=== PATIENT | male | born 1965 | race Caucasian/White ===

== ENCOUNTER 2023-02-21 12:41 | Outpatient (REF) | payer OTHER, SELFPAY ==
--- NOTE | ~2023-02-21 | XR_ITS ---
EXAMINATION: XR LUMBOSACRAL SPINE WITH OBLIQUES CLINICAL INFORMATION: Spinal stenosis. COMPARISON: None available. TECHNIQUE: AP, lateral, flexion and extension views of the lumbar spine. FINDINGS: Levoscoliosis of the thoracolumbar spine. Facet arthritis in the lower lumbar spine. Atherosclerotic aortoiliac calcifications. Mild multilevel lumbar spondylosis. Mild loss of disc space height at L4-L5 with very minimal anterolisthesis of L4 on L5. XR/XR lumbar spine 4V min IMPRESSION: Mild multilevel degenerative changes most notable at L4-L5. Advanced facet arthritis in the cth-av-eiysz lumbar spine.
== END 2023-02-21 12:42 | disposition home or self-care (01) ==
LOC: HO.HOSX 12:41
PROVIDERS: Visit Provider Physician Assistant
DX: M48.061 Spinal stenosis, lumbar region without neurogenic claudication (principal)
CPT/HCPCS: 72110

== ENCOUNTER 2023-02-21 12:41 | Outpatient (AMB) | payer OTHER, SELFPAY ==
--- NOTE | 2023-02-21 13:03 | HO.SPINEOV ---
Intake Intake Visit Reasons: herniated disc Intake Note: Mr Villarreal is here today c/o low back pain. MRI/brought disc. Assessment & Plan Assessment & Plan (1) Lumbar stenosis: Code(s): M48.061 - Spinal stenosis, lumbar region without neurogenic claudication Plan This is a very nice 57-year-old gentleman who is self-referred for evaluation of a right lumbar radiculopathy which goes from his buttock down into his posterior thigh. It started about a year ago and was very intense at the time. He initially saw an orthopedic surgeon and it was felt that it possibly was his hip. They tried doing a number of different treatments. He ultimately underwent physical therapy. He was trialed on prednisone, Advil and muscle relaxers. As the months went on the pain down a little bit but he continued to have flare ups. Ultimately he was diagnosed by a neurosurgeon in [place] with lumbar radiculopathy after an MRI showed severe stenosis at L4-5 and he underwent 2 cortisone injections in his back. He did get 2 solid days of relief from that but ultimately everything came back. He was started on gabapentin which is dampen down the pain quite a bit, but if he is off it for any length of time the severity of the right leg pain will increase again and his right back where he started. He tried chiropractic treatments as well. At this point the neuro surgeon in [place] was offering him lumbar fusion surgery. He was looking for something more minimally invasive so he sought out Dr. Mac who had operated on a friend of his. He does not report any significant back pain. His symptoms are not necessarily aggravated with activity but can start randomly. PMH: He has history of hypertension, when he was in his 30s his blood pressure so high he has TIAs related to the elevated blood pressure. Since his blood pressures come down he has had none of those issues. Outside of that he is very healthy. Social hx: He does not smoke Medications: Gabapentin, Advil and a muscle relaxer Allergies: None Physical exam: He is awake alert oriented no acute distress here with his , he has full strength bilateral lower extremities, gait is normal Imaging review: Lumbar MRI done in July 2022 at a hospital in [place] and this shows overall relatively good disc health, he may have a slight spondylolisthesis at L4-5. He has congenitally short pedicles and severe stenosis at L4-5. The rest of his lumbar spine is unremarkable. Impression: 57-year-old gentleman self-referred today for an intermittent right lumbar radiculopathy which starts in his buttock and radiates down into his posterior lateral thigh. He has severe stenosis at L4-5 in the setting of congenitally short pedicles. He has tried all the usual conservative treatments. He did get a great response from a cortisone injection for about 2 days but it was short-lived. The symptoms at this point are significantly affecting his quality of life. His neuro exam is intact. He was told by another neurosurgeon that he would benefit from an L4-5 fusion. I sent him for flexion-extension x-rays today and I do not see any evidence of instability so I do not think a fusion would be necessary.. I think he would be a good candidate for a right L4-5 decompression. I will speak to Dr. Mac and have him review the films to see if he agrees. Pt was given risk and benefits of surgery including but not limited to infection, hematoma , nerve injury,durotomy, weakness,bowel/bladder injury, persistent pain, as well as the option to continue with conservative treatment and patient wishes to proceed with surgery. Pt is aware they should stop their motrin, aspirin 7 days prior to surgery. All questions were answered to the best of our ability. If there is anything about this patients medical history that we have overlooked or concerns you have about us proceeding with surgery we would appreciate any input you can offer. I have tentatively put him on the books for surgery for April 22. He lives 2 hours away in [place] so we can get his PCP to do an EKG and blood work and he can have his preoperative testing over the phone hopefully. Thank you for allowing us to care for your patient. The total time spent with this visit with this patient was 45 minutes reviewing history, physical exam, lumbar imaging review, and implementation of treatment plan or further diagnostic testing Jacob Mac MD,PhD [facility] Orders: Orders XR lumbar spine 4V min Today M48.061 - Spinal stenosis, lumbar region without neurogenic claudication Coding Level of Care Code New Pt Level 4 (57362) Diagnoses Lumbar stenosis M48.061
== END 2023-02-21 13:50 | disposition home or self-care (01) ==
PROVIDERS: Visit Provider Physician Assistant
DX: M48.061 Spinal stenosis, lumbar region without neurogenic claudication (principal)
CPT/HCPCS: 99204

== ENCOUNTER 2023-03-06 06:55 | Day surgery (SDC) | payer OTHER, SELFPAY ==
--- NOTE | 2023-03-05 13:16 | P.CONAN_ITS ---
Documented by User: Margareth Marvin NP 03/05/23 13:35 HPI - Anesthesia Eval Consult details Narrative: 57yo M for Right L4-5 Microlumbar decompression No medical hx / Med list provided by surgical office. (H&P narrative indicates hx of HTN/TIA). External Med list includes plavix. Pt not booked for PAT by surgical office. Will obtain labs/EKG DOS. Per 03/05/23 t/c with patient, hx tia's in 30's. 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 Follows no other specialists. Denies CP/SOB with working on feet all day. PMFSH Active Problems Active Problems: All Active Problems (Updated 02/21/23 @ 13:22 by SHERI Terrazas) Lumbar stenosis (Acute) Past Medical History Medical History (Updated 03/05/23 @ 13:26 by Margareth Marvin NP) TIA (transient ischemic attack) HLD (hyperlipidemia) HTN (hypertension) Family History Family history of problems with anesthesia: No Surgical History Surgical History (Updated 03/05/23 @ 13:32 by Margareth Marvin NP) H/O knee surgery Status post right foot surgery History of Problems with Anesthesia: No Social History Social History Patient Tobacco Use Status: Former Tobacco user Use of substances other than those prescribed or required for medical reasons: No Are you DNR?: No Advance Directives: No Advance Directives Information Provided: Yes Nutrition Risks: No Nutritional Risk Meds Allergies Allergy/AdvReac Type Severity Reaction Status Date / Time No Known Drug Allergies Allergy Unknown Verified 03/03/23 15:57 Home Medications Medication Instructions Recorded Confirmed Last Taken Type bisoprolol fumarate 5 mg tablet 5 mg PO DAILY 03/05/23 03/05/23 03/06/23 History cyclobenzaprine 10 mg tablet 10 mg PO TID PRN Pain 03/05/23 03/05/23 Unknown History gabapentin 300 mg capsule mg PO 03/05/23 03/05/23 Unknown History lisinopril 10 mg tablet 10 mg PO DAILY 03/05/23 03/05/23 Unknown History simvastatin 20 mg tablet 20 mg PO BEDTIME 03/05/23 03/05/23 Unknown History triamterene 37.5 1 tab PO DAILY 03/05/23 03/05/23 Unknown History mg-hydrochlorothiazide 25 mg tablet aspirin 81 mg tablet,delayed mg 03/06/23 03/06/23 03/03/23 History release clopidogrel 75 mg tablet 75 mg PO DAILY 03/06/23 03/06/23 12/23/22 History Exam Exam Date and Time: March 05, 2023 1316 Assessment and Plan Assessment Anesthesia Assessment: Chart Reviewed Final Anesthetic Review Family History of Problems with Anesthesia: No History of Problems with Anesthesia: No Documented by User: Crystal Christian MD 03/06/23 08:30 [facility] Past Medical History Medical History (Updated 03/05/23 @ 13:26 by Margareth Marvin NP) TIA (transient ischemic attack) HLD (hyperlipidemia) HTN (hypertension) Surgical History Surgical History (Updated 03/05/23 @ 13:32 by Margareth Marvin NP) H/O knee surgery Status post right foot surgery Social History Social History Patient Tobacco Use Status: Former Tobacco user Use of substances other than those prescribed or required for medical reasons: No Are you DNR?: No Advance Directives: No Advance Directives Information Provided: Yes Nutrition Risks: No Nutritional Risk Meds Allergies Allergy/AdvReac Type Severity Reaction Status Date / Time No Known Drug Allergies Allergy Unknown Verified 03/03/23 15:57 Home Medications Medication Instructions Recorded Confirmed Last Taken Type bisoprolol fumarate 5 mg tablet 5 mg PO DAILY 03/05/23 03/05/23 03/06/23 History cyclobenzaprine 10 mg tablet 10 mg PO TID PRN Pain 03/05/23 03/05/23 Unknown History gabapentin 300 mg capsule mg PO 03/05/23 03/05/23 Unknown History lisinopril 10 mg tablet 10 mg PO DAILY 03/05/23 03/05/23 Unknown History simvastatin 20 mg tablet 20 mg PO BEDTIME 03/05/23 03/05/23 Unknown History triamterene 37.5 1 tab PO DAILY 03/05/23 03/05/23 Unknown History mg-hydrochlorothiazide 25 mg tablet aspirin 81 mg tablet,delayed mg 03/06/23 03/06/23 03/03/23 History release clopidogrel 75 mg tablet 75 mg PO DAILY 03/06/23 03/06/23 12/23/22 History Exam Airway Mallampati Class: III TM Dist: >3cm Neck ROM: Full Assessment and Plan Assessment Anesthesia Assessment: Anesthesia Plan Discussed Final Anesthetic Review NPO: Yes ASA Class: III Final Preanesthetic Review: No Changes in Pt Med Stat, Meds/Allgs Chart Reviewed, Consent Obtained/Reviewed and Anes Risks/Benef Reviewed Patient Risk: Intermediate Procedure Risk: Intermediate Anesthetic Plan Anesthetic Plan: GA Disposition: Standard PACU
--- NOTE | ~2023-03-06 | FL_ITS ---
EXAMINATION: XR FLUOROSCOPY WITH IMAGES CLINICAL INFORMATION: L4-L5 microlumbar decompression, right. COMPARISON: None available. TECHNIQUE: Fluoroscopy Supervised By: Dr. Rajesh Mac. Fluoroscopy Time: 0.0 minutes. Cumulative Dose: 3.88 mGy. DAP: 0.0675 Gycm2. Images: 1. FINDINGS: Images demonstrate surgical instruments and marker projecting over the posterior lower lumbar spine FL/FL guidance in OR IMPRESSION: Fluoroscopy guidance for lumbar spine surgery
--- NOTE | 2023-03-06 06:59 | ECG_ITS ---
Test Reason : pre op Blood Pressure : / mmHG Vent. Rate : 092 BPM Atrial Rate : 092 BPM P-R Int : 178 ms QRS Dur : 086 ms QT Int : 352 ms P-R-T Axes : 013 -06 009 degrees QTc Int : 435 ms Normal sinus rhythm Intra-ventricular conduction delay Borderline ECG No previous ECGs available Referred By: Margareth Marvin Electronically Signed By:GIBSON ESPINOZA MD
--- NOTE | 2023-03-06 07:00 | MHC.SHP ---
Pre-Procedural Eval Section A Date of Service: 03/06/23 Section B Chief Complaint: Spinal stenosis, lumbar region without neurogenic Allergies: Allergies Allergy/AdvReac Type Severity Reaction Status Date / Time No Known Drug Allergies Allergy Unknown Verified 03/03/23 15:57 Review of Systems Sugical H&P ROS: Negative: Constitution, Cardiovascular, Respiratory, Neurological, Psychiatric, Hem-Onc, Allergic/Immunologic, Gastrointestinal, Genitourinary, Musculoskeletal, Integumentary, Endocrine and Eyes/Ears/Nose/Throat Exam Surgical H&P Exam: Not Evaluated: HEENT, Not Evaluated: Heart, Not Evaluated: Lungs, Not Evaluated: Extremities, Not Evaluated: Abdomen, Not Evaluated: Skin and Not Evaluated: Neurological Plan Diagnosis/Plan: Unchanged I have reviewed the history and physical and performed a pertinent physical examination on my patient. No changes have occurred unless specified. Plan remains the same, Right L4-5 lumbar decompression Time Spent With Patient Time: Total time managing care of this patient today _10___ minutes.
[2023-03-06 07:04] VITALS: BMI 34.1
[2023-03-06] MEDS: methocarbamoL 750 MG TABLET PO (07:10)
[2023-03-06] MEDS: Gabapentin 300 MG CAPSULE PO ×2 (07:10→07:43)
[2023-03-06 07:22] VITALS: BP 158/85; PULSE 91; RESP 18; TEMP 36.6; O2SAT 97
[2023-03-06] MEDS: Lactated Ringers 1,000 ML 100 ML IVCONT (07:43)
[2023-03-06 07:46] LABS: Hematocrit 41.4 % (42.0-52.0); Hemoglobin 14.6 g/dl (14.0-18.0); Mean Corpuscular HGB Conc 35.3 g/dl (31.0-36.0); Mean Corpuscular Hemoglobin 33.9 pg (27.0-33.0); Mean Corpuscular Volume 96.1 fL (80.0-98.0); Mean Platelet Volume 10.6 fL (9.4-12.4); Platelet Count 235 X10*3/uL (160-400); Red Blood Count 4.31 X10*6/uL (4.60-5.80); Red Cell Distribution Width 13.2 % (11.0-16.0); White Blood Count 7.6 X10*3/uL (4.8-10.8)
[2023-03-06 08:02] LABS: Anion Gap 11 (12-20); Blood Urea Nitrogen 12 mg/dL (9-16); Calcium 9.4 mg/dL (8.4-10.2); Carbon Dioxide 27 mmol/L (22-29); Chloride 103 mmol/L (96-108); Creatinine Clr Calc Pharmacy 115.5; Estimated Glomerular Filt Rate > 60; Glucose Fasting 132 mg/dL (60-99); Potassium 4.1 mmol/L (3.3-5.1); Sodium 137 mmol/L (135-145)
--- NOTE | 2023-03-06 10:09 | PM.DS ---
DS: Providers Provider Date of Service: 03/06/23 Primary care physician: Nonstaff Physician DS: Summary Time Attestation Discharge coordination time: Less than 30 minutes Quality: Safe Use of Opioids Does Pt have an Active Cancer Diagnosis on the Problem List?: No Quality: Stroke Does the patient have a stroke diagnosis?: No Physical Exam Vital Signs: Vital Signs: Last Vital Signs Temp 98 F 03/06/23 07:22 Pulse 91 03/06/23 07:22 Resp 18 03/06/23 07:22 BP 158/85 H 03/06/23 07:22 Pulse Ox 97 03/06/23 07:22 O2 Del Method Room Air 03/06/23 07:22 BMI result Body Mass Index 34.1 DS: Data Data Completed and Pending Labs on day of discharge: Laboratory Results - last 24 hr 03/06/23 07:30 WBC 7.6 RBC 4.31 L Hgb 14.6 Hct 41.4 L MCV 96.1 MCH 33.9 H MCHC 35.3 RDW 13.2 Plt Count 235 MPV 10.6 Absolute Nucleated RBC 0.000 Nucleated RBC % (auto) 0.0 Sodium 137 Potassium 4.1 Chloride 103 Carbon Dioxide 27 Anion Gap 11 L BUN 12 Creatinine 0.79 Estim Creat Clear Calc 115.5 Estimated GFR > 60 Fasting Glucose 132 H Calcium 9.4 Discharge Plan Discharge Patient Disposition: Home, Self-Care Referrals: Physician,Nonstaff [Primary Care Provider] - 1 Week Discharge Medications: No Action cyclobenzaprine 10 mg tablet 10 mg PO TID PRN (Reason: Pain) bisoprolol fumarate 5 mg tablet 5 mg PO DAILY simvastatin 20 mg tablet 20 mg PO BEDTIME lisinopril 10 mg tablet 10 mg PO DAILY gabapentin 300 mg capsule PO triamterene-hydrochlorothiazid 37.5-25 mg tablet 1 tab PO DAILY clopidogrel 75 mg tablet 75 mg PO DAILY aspirin [Aspir-81] 81 mg Tablet,Delayed Release (Dr/Ec) Discharge Orders: Discharge Order (Routine); Ordered 03/06/23 Ordered By: Edson Headley Diet: Advance to usual diet Activity on Discharge: As tolerated Activity Restrictions/Additional Instructions: After your spinal surgery we ask you to observe the following restrictions/guidelines: Activity: It is normal to feel some discomfort as you increase your activity, but that will improve with time. We ask you avoid heavy lifting or acitivities that cause pain. As a general rule, 8lbs is a safe limit for lifting right after surgery. Walk as much as you feel comfortable but not to exhaustion. You will feel extra tired the first few days after surgery. Stay well hydrated. It is OK to walk up and down stairs You may return to driving when you are off narcotics (such as vicodin, oxycodone, dilaudid, etc), and you are back to normal functional capacity. If you have any concerns please check with office before driving. Return to work is specific to each patient and each surgery, so please speak with your doctor/PA at first follow up. Please bring paperwork such as FMLA at that time if you need it filled out. Medications: We will give you a short supply of narcotics after surgery (usually one weeks worth). If you need more please call the office but do not use more than prescribed. You will need to give our office 48 hours notice if you need narcotics refilled and we do not fill narcotics on weekends or evenings. If you are on a narcotic, it is a good idea to take a stool softener such as colace or senna to avoid constipation If you take blood thinner such as aspirin, Plavix, Coumadin, Effient, Eliquis etc for conditions such as Afib, DVT, Pulmonary embolus, coronary disease, stents etc please speak with your surgeon about specific details as to when you can resume these medications. You can resume NSAIDs on post op day 1 (eg: Motrin, Naproxen, etc). Follow up: Please call the office, , after surgery to arrange a 3 week follow up for wound check. Wound Care: You may remove your dressing on the first day after surgery. You may leave open to air. Please do not remove the steri strips underneath. they will fall off on their own in one week. IT IS NORMAL FOR THE WOUND TO OOZE OR BE BLOODY FOR A FEW DAYS AFTER SURGERY. IF THIS HAPPENS JUST PLACE NEW DRESSING OVER IT TO AVOID STAINING CLOTHES. You may shower on post op day # 1 We ask that you do not let the water soak the wound. If it does get wet, just towel dry lightly. Please do not scrub your incision or place any type of chemical/ointment on the wound. No tub baths, pools or jacuzzis for one month. If you have any leaking or redness from your wound, or fevers, please call the office.
--- NOTE | 2023-03-06 10:23 | P.OP_ITS ---
Operative Note Operative Note Date of Service: 03/06/23 Narrative: Preoperative Diagnosis: L4-5 spinal stenosis/lateral recess stenosis/neural foraminal stenosis Operation: right L4-5 Laminotomy, Partial facetectomy and foraminotomy with use of microscope Consent Informed Consent was obtained for this operation. I have explained the nature, purpose and benefits of the operation. I have discussed the risks and benefit of the operation including possible complications or adverse events with patient/family. Alternative(s) were discussed with the patient with their relative benefits and risks as well as the consequences of not accepting the operation were included in obtaining consent. Surgeon: ALPA HERNANDEZ MD, PHD Procedure Assisted By: SHERI Beckham Description of Procedure this 57-year-old male suffer from a right lumbar radiculopathy due to L4-5 lumbar stenosis and lateral recess stenosis. The patient was offered a decompression. The procedure and complications were explained. The patient was consented. The patient was brought to the operating room and endotracheally intubated. The patient was turned in prone position on the [place] frame. Prep and drape was done followed by timeout. The Physician commercial lending assistant provided access. A mid lumbar incision was made followed by release of the paravertebral muscle on the right side to expose the L4-5 lamina and facet joints. An intraoperative x-ray was obtained to confirm the correct level. The microscope was brought in. I took over the procedure. The high-speed drill was used to do a right L4-5 laminotomy until the flavum ligament was reached. A #2 Kerrison was used to expand the laminotomy near flush to the pedicles and to include a partial facetectomy. The flavum ligament was opened and resected with a #3 Kerrison to decompress the underlying thecal sac. The flavum ligament was removed to de compress the lateral recess and the exiting L5 nerve root. A long nerve hook could be easily passed along the medial side of the pedicle as a sign of adequate decompression. The microscope was removed. Hemostasis was done. The physician commercial lending assistant close the Incision in 2 layers. Steri-Strips were used to approximate incision. An OpSite with Tegaderm was used to cover the incision. All sponge needle counts were correct. Patient was extubated and transported in stable is to recovery room. Anesthesia: General Estimated Blood Loss (ml): minimal Complications: None Duration of Surgery: Under 60 Minutes Postoperative Plan: Discharge to home
[2023-03-06 10:30] VITALS: BP 122/63; PULSE 98; RESP 19; TEMP 36.6; O2SAT 96
[2023-03-06 10:35] VITALS: BP 111/78; PULSE 98; RESP 18; O2SAT 96
[2023-03-06 10:40] VITALS: BP 141/81; PULSE 97; RESP 17; O2SAT 96
[2023-03-06 10:45] VITALS: BP 133/79; PULSE 97; RESP 15; O2SAT 93
[2023-03-06 11:00] VITALS: BP 131/88; PULSE 98; RESP 18; TEMP 36.5; O2SAT 95
--- NOTE | 2023-03-06 11:52 | P.CONAN_ITS ---
[facility] Active Problems Active Problems: All Active Problems (Updated 03/05/23 @ 13:26 by Margareth Marvin NP) Lumbar stenosis (Acute) Past Medical History Medical History (Updated 03/05/23 @ 13:26 by Margareth Marvin NP) TIA (transient ischemic attack) HLD (hyperlipidemia) HTN (hypertension) Family History Family history of problems with anesthesia: No Surgical History Surgical History (Updated 03/05/23 @ 13:32 by Margareth Marvin NP) H/O knee surgery Status post right foot surgery History of Problems with Anesthesia: No Social History Social History Patient Tobacco Use Status: Former Tobacco user Meds Allergies Allergy/AdvReac Type Severity Reaction Status Date / Time No Known Drug Allergies Allergy Unknown Verified 03/03/23 15:57 Home Medications Medication Instructions Recorded Confirmed Last Taken Type bisoprolol fumarate 5 mg tablet 5 mg PO DAILY 03/05/23 03/05/23 03/06/23 History cyclobenzaprine 10 mg tablet 10 mg PO TID PRN Pain 03/05/23 03/05/23 Unknown History gabapentin 300 mg capsule mg PO 03/05/23 03/05/23 Unknown History lisinopril 10 mg tablet 10 mg PO DAILY 03/05/23 03/05/23 Unknown History simvastatin 20 mg tablet 20 mg PO BEDTIME 03/05/23 03/05/23 Unknown History triamterene 37.5 1 tab PO DAILY 03/05/23 03/05/23 Unknown History mg-hydrochlorothiazide 25 mg tablet aspirin 81 mg tablet,delayed mg 03/06/23 03/06/23 03/03/23 History release clopidogrel 75 mg tablet 75 mg PO DAILY 03/06/23 03/06/23 12/23/22 History Exam Height,Weight and Vital Signs: Height 5 ft 7 in Weight 98.792 kg Last Vital Signs Temp 97.7 F 03/06/23 11:00 Pulse 98 03/06/23 11:00 Resp 18 03/06/23 11:00 BP 131/88 03/06/23 11:00 Pulse Ox 95 03/06/23 11:00 O2 Del Method Room Air 03/06/23 11:00 O2 Flow Rate 3 03/06/23 10:40 Pertinent Lab Results Pertinent Lab Results: Laboratory Tests 03/06/23 07:30 WBC 7.6 RBC 4.31 L Hgb 14.6 Hct 41.4 L MCV 96.1 MCH 33.9 H MCHC 35.3 RDW 13.2 Plt Count 235 MPV 10.6 Absolute Nucleated RBC 0.000 Nucleated RBC % (auto) 0.0 Sodium 137 Potassium 4.1 Chloride 103 Carbon Dioxide 27 Anion Gap 11 L BUN 12 Creatinine 0.79 Estim Creat Clear Calc 115.5 Estimated GFR > 60 Fasting Glucose 132 H Calcium 9.4 Airway Mallampati Class: III TM Dist: >3cm Neck ROM: Full Assessment and Plan Final Anesthetic Review Family History of Problems with Anesthesia: No History of Problems with Anesthesia: No
== END 2023-03-06 11:36 | disposition home or self-care (01) ==
PROVIDERS: Nurse Practitioner; Visit Provider Neurological Surgery
PROC: (CPT 63047; principal; 2023-03-06 08:40)
DX: M48.061 Spinal stenosis, lumbar region without neurogenic claudication (principal); M54.16 Radiculopathy, lumbar region; I10 Essential (primary) hypertension; E78.5 Hyperlipidemia, unspecified; Z86.73 Personal history of transient ischemic attack (TIA), and cerebral infarction without residual deficits; Z79.899 Other long term (current) drug therapy; Z79.1 Long term (current) use of non-steroidal anti-inflammatories (NSAID)
CPT/HCPCS: 63047; 36415; 80048; 85027; 93005; J0131; J0690; J1100; J2250; J2405; J2704; J3010

== ENCOUNTER → 2023-03-06 06:55 | Outpatient (BNV) | payer OTHER, SELFPAY | PROVIDERS: Visit Provider Physician Assistant | DX: M48.061 Spinal stenosis, lumbar region without neurogenic claudication (principal) | CPT/HCPCS: 63047; 99499 ==

== ENCOUNTER 2023-04-03 11:37 | Outpatient (AMB) | payer OTHER, SELFPAY ==
--- NOTE | 2023-04-03 11:46 | HO.SPINEOV ---
Intake Intake Visit Reasons: 1st post-op visit. Allergies No Known Drug Allergies Allergy (Verified 03/03/23 15:57) Unknown Assessment & Plan Assessment & Plan (1) S/P spinal surgery: Code(s): Z98.890 - Other specified postprocedural states Plan Procedure: Right L4-5 Laminotomy, Partial facetectomy and foraminotomy Sal comes in today for his 1st postoperative visit. He reports he is very satisfied with the surgery and feels much better than he did pre-operatively. He reports he no longer has shooting pains into his right thigh. He reports that his pain started off as an 8/10 after surgery, reduced down to a 4/10 in the 1st week, then shot back up to an 8/10 after he attempted to install a door at his house. He has since been more mindful of his lifting/exercise and his pain is reduced down to a 2/10. He states that he has successfully engaging back in regular activities of life, and most recently went bowling last night and completed 3 full rounds with his friends. No neurological deficits. Patient is able to ambulate well, rises from a seated position without difficulty. Incision site is closed, well healing, with no signs of drainage. The patient lives roughly 2 hours away and does not have any symptoms that would require additional follow-up. He may be discharged as a patient at this time. Edson Mac MD,PhD [facility] Coding Level of Care Code Global (28136) Diagnoses S/P spinal surgery Z98.890
== END 2023-04-03 12:57 | disposition home or self-care (01) ==
PROVIDERS: Visit Provider Physician Assistant
DX: Z98.890 Other specified postprocedural states (principal)
CPT/HCPCS: 99024

== ENCOUNTER → 2023-04-03 11:37 | Outpatient (BNVA) | payer OTHER, SELFPAY | PROVIDERS: Visit Provider Physician Assistant ==